=== PATIENT | male | born 1975 | race Caucasian/White ===

== ENCOUNTER 2016-11-05 10:04 | Emergency (ER) | payer BC, OTHER ==
[~2016-11-05] VITALS: Ht 162.6 cm; Wt 116.7 kg
[2016-11-05 10:23] VITALS: Ht 162.6 cm; Wt 116.7 kg
[2016-11-05] MEDS ORDERED: ACETAMINOPHEN 500 MG TAB PO STA (11:28)
--- NOTE | 2016-11-05 11:57 | RADRPT ---
PROCEDURE: XR Chest. CLINICAL INDICATION: Cough and fever TECHNIQUE: A single PA view of the chest was obtained. COMPARISON: None FINDINGS: The cardiomediastinal silhouette is within normal limits. Mild left lower lung zone airspace disease is seen. The remaining lungs and pleural spaces are clear. The soft tissues and osseous structures are unremarkable. IMPRESSION: Mild left lower lung zone airspace disease which may represent atelectasis versus infiltrate. RPTAT: HPNM Physician Saul Date Time Electronically viewed and signed by De Arteaga Physician on 11/05/2016 11:57 /
[2016-11-05] MEDS ORDERED: IBUP400T22 PO (12:48)
[2016-11-05] MEDS ORDERED: AZIT250T94 PO (12:48)
[2016-11-05 12:59] VITALS: BP 129/75; PULSE 79; RESP 19; TEMP 98.9
--- NOTE | 2016-11-05 14:01 | ERD ---
ER Documentation Chief Complaint Date/Time DATE: 11/05/16 TIME: 13:56 Chief Complaint pt bib with c/o cough, sore throat and feeling bad x 4 days HPI This is a 41-year-old male presenting to emergency department for cough, pharyngitis and fever 4 days. Patient states cough is productive with small amount of clear sputum. Denies chest pain, shortness of breath or difficulty breathing. No wheezing. Patient has sore throat however no difficulty swallowing or drooling. No earache or headache. Patient has tactile fevers at home as has been taking Advil. Last dose of Advil was about 7 hours ago. No abdominal pain, vomiting or diarrhea. ROS All systems reviewed and are negative except as per history of present illness. Medications Home Meds Active Scripts Ibuprofen* (Motrin*) 400 Mg Tab, 400 MG PO Q6, #15 TAB Prov:ALISSON BOOKER NP 11/05/16 Azithromycin* (Zithromax*) 250 Mg Tablet, 250 MG PO .ZPACK DIRECTED, #6 TAB TAKE 500 MG (2 TABS) THE FIRST DAY THEN 250 MG (1 TAB) DAYS 2-5 Prov:ALISSON BOOKER NP 11/05/16 Allergies Allergies: Coded Allergies: No Known Allergy (Unverified , 11/05/16) PMhx/Soc Medical and Surgical Hx: pt denies Medical Hx, pt denies Surgical Hx Hx Alcohol Use: No Hx Substance Use: No Hx Tobacco Use: No Smoking Status: Never smoker Physical Exam Vitals Vital Signs Date Time Temp Pulse Resp B/P Pulse Ox O2 Delivery O2 Flow Rate FiO2 11/05/16 12:59 98.9 79 19 129/75 96 11/05/16 10:23 101.8 85 22 131/75 94 Physical Exam Const: Alert Head: Atraumatic Eyes: Normal Conjunctiva ENT: Normal External Ears, Nose and Mouth. No erythema or exudate posterior pharynx. TMs normal bilaterally. Neck: Full range of motion..~ No meningismus. Resp: Diminished to auscultation bilaterally. No wheezing or crackles Cardio: Regular rate and rhythm, no murmurs Abd: Soft, non tender, non distended. Normal bowel sounds Skin: No petechiae or rashes Back: No midline or flank tenderness Ext: No cyanosis, or edema Neur: Awake and alert Psych: Normal Mood and Affect Results 24 hrs Current Medications Medications (Trade) Dose Ordered Sig/Jess Route PRN Reason Start Time Stop Time Status Last Admin Dose Admin Acetaminophen (Tylenol Tab) 1,000 mg ONCE STAT PO 11/05/16 11:28 11/05/16 11:29 DC 11/05/16 11:33 Procedures/MDM ED COURSE: The patient was stable throughout ED course. I kept the patient and/or family informed of laboratory and diagnostic imaging results throughout the ED course. Tylenol given Imaging Chest x-ray Patient: SURYA BACA : 1975 Age: 41 Sex: M MR #: [id number] DOS: 11/05/16 1128 Ordering MD: ALISSON BOOKER NP Location: [facility] Room/Bed: PROCEDURE: XR Chest. CLINICAL INDICATION: Cough and fever TECHNIQUE: A single PA view of the chest was obtained. COMPARISON: None FINDINGS: The cardiomediastinal silhouette is within normal limits. Mild left lower lung zone airspace disease is seen. The remaining lungs and pleural spaces are clear. The soft tissues and osseous structures are unremarkable. IMPRESSION: Mild left lower lung zone airspace disease which may represent atelectasis versus infiltrate. MDM:, 41-year-old male presents the emergency department for cough pharyngitis and fever 4 days. Temp of 101.8F upon arrival to ED. Patient's oxygen saturation 94% on room air. Patient denies chest pain, shortness of breath or difficulty breathing. No wheezing on physical exam. Lung exam reveals diminished lung sounds bilaterally to posterior lungs. Patient given Tylenol and fever reduced. Chest x-ray reviewed by radiologist as mild left lower lung zone airspace disease which may represent atelectasis versus infiltrate. Based on patient's symptoms and findings, patient will be treated for pneumonia. Patient diagnosis is pneumonia. Low suspicion for pneumothorax, strep pharyngitis, otitis media or pleural effusion. Patient is appropriate for outpatient management and will be given prescription for azithromycin and Motrin. Instructed patient to follow-up with primary care provider in the next 24-48 hours for reassessment and additional management. Return to ED for any high fever, chest pain, difficulty breathing, shortness breath, wheezing, vomiting, diarrhea, abdominal pain or any new or worsening symptoms. Patient verbalizes understanding. All questions answered at discharge. Departure Diagnosis: Primary Impression: Pneumonia Pneumonia type: due to unspecified organism Laterality: left Lung location : lower lobe of lung Qualified Code: J18.9 - Pneumonia of left lower lobe due to infectious organism Condition: Stable Patient Instructions: Pneumonia (Adult) [facility] Usted se shoemaker hecho un examen mdico de control que le indica que no est en shahla condicin que requiera tratamiento urgente en el Departamento de Emergencia. Un estudio ms profundo y el tratamiento de sheldon condicin pueden esperar sin ningn riesgo hasta que usted sea atendida/o en el consultorio de sheldon mdico o shalha cl alexis. Es responsabilidad suya arreglar shahla narcisa para el seguimiento del janna. MANEJO DE CONDICIONES NO URGENTES EN EL FUTURO 1) Si usted tiene un mdico de atencin primaria: Usted debera llamar a sheldon mdico de atencin primaria antes de venir al departamento de emergencia. Despus de las horas de consultorio, sheldon doctor o sheldon asociado/a est disponible por telfono. El mdico o enfermero de raimundo en el servicio telefnico puede asesorarle por fransisco medio para atender el problema, o janna contrario se puede programar shahla narcisa. 2) Si usted no tiene un mdico de atencin primaria: Llame al mdico o clnica de referencia que aparece abajo isiah las horas de consultorio para hacer shahla narcisa para que le vean. CLINICAS: [facility] [phone] [facility] [phone] [address] [facility] [phone] [facility] [phone] [address] [place] [phone] [facility] [phone] [address] [facility]. [facility] () Karissa se shoemaker hecho un examen mdico de control que le indica que no est en shahla condicin que requiera tratamiento urgente en el Departamento de Emergencia. Un estudio ms profundo y el tratamiento de sheldon condicin pueden esperar sin ningn riesgo hasta que usted sea atendida/o en el consultorio de sheldon mdico o shahla cl alexis. Es responsabilidad suya arreglar shahla narcisa para el seguimiento del janna. MANEJO DE CONDICIONES NO URGENTES EN EL FUTURO 1) Si usted tiene un mdico de atencin primaria: ted debera llamar a sheldon mdico de atencin primaria antes de venir al departamento de emergencia. Despus de las horas de consultorio, sheldon doctor o sheldon asociado/a est disponible por telfono. El mdico o enfermero de raimundo en el servicio telefnico puede asesorarle por fransisco medio para atender el problema, o janna contrario se puede programar shahla narcisa. 2) Si usted no tiene un mdico de atencin primaria: Llame al mdico o condado institucions de referencia que aparece abajo isiah las horas de consultorio para hacer shahla narcisa para que le vean. SI USTED NO PUEDE PAGAR PARA ELEANOR UN MEDICO puede ir a: [facility] [id number] [place] [address] [facility] [address] [place] [address] [facility] [address] [place] [address] [facility] [address] [place], [place] [phone] Additional Instructions: Llame al doctor MAANA y kyle shahla NARCISA PARA DENTRO DE 2-3 ELLIS.Dgale a la secretaria que nosotros le instruimos hacer esta narcisa.Avise o llame si sheldon condicin se empeora antes de la narcisa. Regresa aqui si peor o no mejor. Return to ED for any high fever, chest pain, difficulty breathing, shortness breath, wheezing, vomiting, diarrhea, abdominal pain or any new or worsening symptoms. ALISSON BOKOER NP Nov 05, 2016 14:01
== END 2016-11-05 13:01 | disposition home or self-care (01) ==
LOC: FTE 10:04
DX: J18.9 Pneumonia, unspecified organism (principal)
CPT/HCPCS: 71010; 87400